=== PATIENT | male | born 1985 | race Caucasian/White ===

== ENCOUNTER 2016-08-26 11:40 | Emergency (ER) | payer OTHER ==
[~2016-08-26] VITALS: Ht 177.8 cm; Wt 65.0 kg
[~2016-08-26 11:40] MED LIST: PANT1TAB48 PO
[2016-08-26 11:45] VITALS: TEMP 36.8; O2SAT 99; Ht 177.8 cm; Wt 65.0 kg
[2016-08-26] MEDS ORDERED: GI COCKTAIL PO STA (12:13)
[2016-08-26] MEDS ORDERED: SUCRALFATE 1 GM TAB PO STA (12:13)
[2016-08-26] MEDS ORDERED: FAMOTIDINE 20 MG TAB PO ONE (12:15)
--- NOTE | 2016-08-26 12:15 | EMERGENCY ROOM VISIT NOTE ---
History Report prepared by Lisandra: Edith Morales Under the Supervision of: Dr. Livan Galvez M.D. First contact with patient: 11:51 Chief Complaint: CARDIAC ASSESSMENT Stated Complaint: Anxiety, nausea Nursing Triage Summary: Pt arrives ALS Pt has had "GI issues" for 2 years and has had endoscopy and colonoscopy Pt report episodes of chest tightness and SOB over the past 2 weeks Pt reports he had an episode last night, EMS was on scene, and pt decided not to come to hospital Today pt had another episode of chest tightness and SOB hx anxiety History of Present Illness The patient is a 30 year old male who presents to the Emergency Room with complaints of resolved chest pain that has been intermittent over the last several weeks. He currently rates his discomfort as a 3/10 in severity. The patient states that he has had labored breathing and chest tightness intermittently over the last several weeks. He states that last evening his symptoms worsened so he called for an ambulance. The patient states that by the time EMS arrived his symptoms subsided. He states that it happened again this morning while he was sitting in a classroom at work. The patient states that he additionally felt dizzy and disoriented. He states that he has had intermittent gastrointestinal issues, noting that he has followed with [facility] for his symptoms, but recently switched to [facility]. The patient states that he has had an endoscopy, colonoscopy, CT scan, and Dexter-scan. He notes that he has had intermittent abdominal pain. The patient denies any family history of heart disease. He denies any tobacco use or history of diabetes. The patient denies any previous stress test. The patient notes that he is active and works out often. Source of History: patient Onset: the last several weeks Position: chest Symptom Intensity: 3/10 Quality: other (tightness) Timing: intermittent, resolved Associated Symptoms: + SOB (labored breathing) Note: Associated Symptoms: dizziness, disoriented Review of Systems See HPI for pertinent positives & negatives. A total of 10 systems reviewed and were otherwise negative. Past Medical & Surgical Medical Problems: (1) No pertinent past medical history Surgical Problems: (1) No pertinent past surgical history Family History No pertinent family history stated. Social History Smoking Status: Former Smoker Alcohol Use: occasionally Marital Status: single Housing Status: lives alone Occupation Status: employed Current/Historical Medications Scheduled Amoxicillin (Amoxil), 500 MG PO BID Chlordiazepoxide (Librium), 5 MG PO DAILY Omeprazole (Prilosec), 20 MG PO DAILY Allergies Coded Allergies: No Known Allergies (Unverified , 08/26/16) Physical Exam Vital Signs Date Time Temp Pulse Resp B/P Pulse Ox O2 Delivery O2 Flow Rate FiO2 08/26/16 13:22 67 20 129/69 08/26/16 12:01 81 08/26/16 11:45 36.8 70 18 127/88 99 Room Air Physical Exam GENERAL: Patient is a healthy-appearing well-nourished HEAD: Normocephalic atraumatic EYES: Ocular movements intact pupils equal and react to light OROPHARYNX mucous membranes are moist no exudates present no erythema or edema present NECK: Supple no nuchal rigidity CHEST: Good equal expansion LUNGS: Clear and equal to auscultation CARDIAC: Normal S1 and S2 ABDOMEN: Soft nontender no guarding BACK: No CVA tenderness EXTREMITIES: No pain upon palpation normal muscle strength in all groups no clubbing cyanosis or edema NEURO: Patient is following commands is answering questions appropriately. Alert and oriented x3 Cranial Nerves 2-12 grossly intact Medical Decision & Procedures ER Provider Diagnostic Interpretation: X-ray results as stated below per interpretation by me and the radiologist: CHEST ONE VIEW PORTABLE CLINICAL HISTORY: Chest pain. Anxiety. COMPARISON STUDY: No previous studies for comparison. FINDINGS: Lung volumes are normal. There is no pneumothorax or pleural effusion. Cardiac size is normal. Mediastinal contours are normal. There is no evidence of pulmonary edema. IMPRESSION: No acute cardiopulmonary findings. Electronically signed by: Joseph Vega M.D. 08/26/2016 1:12 PM Dictated Date/Time: 08/26/2016 1:11 PM Laboratory Results 08/26/16 12:00 08/26/16 12:00 Test 08/26/16 12:00 08/26/16 12:07 Red Blood Count 4.67 M/uL (4.7-6.1) Mean Corpuscular Volume 87.8 fL (80-100) Mean Corpuscular Hemoglobin 31.0 pg (25-34) Mean Corpuscular Hemoglobin Concent 35.4 g/dl (32-36) RDW Standard Deviation 41.0 fL (36.4-46.3) RDW Coefficient of Variation 12.8 % (11.5-14.5) Mean Platelet Volume 9.5 fL (7.4-10.4) Prothrombin Time 11.0 SECONDS (9.0-12.0) Prothromb Time International Ratio 1.0 (0.9-1.1) Activated Partial Thromboplast Time 27.2 SECONDS (21.0-31.0) Partial Thromboplastin Ratio 1.0 Est Creatinine Clear Calc Drug Dose 90.3 ml/min Estimated GFR () 103.9 Estimated GFR (Non- 89.6 BUN/Creatinine Ratio 11.6 (10-20) Calcium Level 8.9 mg/dl (8.5-10.1) Total Bilirubin 0.5 mg/dl (0.2-1) Aspartate Amino Transf (AST/SGOT) 16 U/L (15-37) Alanine Aminotransferase (ALT/SGPT) 21 U/L (12-78) Alkaline Phosphatase 39 U/L (45-117) Total Creatine Kinase 116 U/L (39-308) Creatine Kinase MB 0.6 ng/ml (0.5-3.6) Creatine Kinase MB Ratio 0.5 (0-3.0) Troponin I < 0.015 ng/ml (0-0.045) Total Protein 7.2 gm/dl (6.4-8.2) Albumin 4.0 gm/dl (3.4-5.0) Globulin 3.2 gm/dl (2.5-4.0) Albumin/Globulin Ratio 1.3 (0.9-2) Bedside Hemoglobin 14.3 g/dl (14.0-18.0) Bedside Hematocrit 42 % (42-52) Bedside D-Dimer 49 ng/mlFEU (0-450) Bedside Sodium 139 mEq/L (135-144) Bedside Potassium 4.2 mEq/L (3.3-5.0) Bedside Chloride 104 mEq/L (101-112) Bedside Total CO2 22 mEq/l (24-31) Anion Gap 19.0 mmol/L (16-25) Bedside Blood Urea Nitrogen 14 mg/dl (7-18) Bedside Creatinine 1.1 mg/dl (0.6-1.3) Bedside Glucose (other) 95 mg/dl (70-99) Bedside Ionized Calcium (Hansel) 1.08 mmol/l (1.12-1.32) Labs reviewed by ED physician. Medications Administered Medications (Trade) Dose Ordered Sig/Renetta Route Start Time Stop Time Status Last Admin Dose Admin Famotidine (Pepcid Tab) 20 mg NOW ONCE PO 08/26/16 12:15 08/26/16 12:16 DC 08/26/16 12:15 20 MG Sucralfate (Carafate Tab) 1 gm NOW STAT PO 08/26/16 12:13 08/26/16 12:14 DC 08/26/16 12:13 1 GM Al Hydroxide/Mg Hydroxide (Maalox Susp) 30 ml STK-MED ONCE .ROUTE 08/26/16 12:26 08/26/16 12:27 DC 08/26/16 12:26 30 ML Lidocaine HCl (Viscous Lidocaine 2% Soln) 20 ml STK-MED ONCE .ROUTE 08/26/16 12:26 08/26/16 12:27 DC 08/26/16 12:26 20 ML Lorazepam (Ativan Inj) 1 mg NOW STAT IV 08/26/16 13:14 08/26/16 13:15 DC 08/26/16 13:21 1 MG ECG Indication: chest pain Rate (beats per minute): 68 Rhythm: normal sinus Findings: no acute ischemic change, no ectopy ED Course 1205: Past medical records reviewed. The patient was evaluated in room A6. A complete history and physical examination was performed. 1213: Ordered Carafate Tab 1 gm PO, GI Cocktail 24 ml PO. 1215: Ordered Famotidine 20 mg PO. 1314: I reevaluated the patient and he is resting comfortably. I discussed the exam findings with him and I discussed the treatment plan. He verbalized complete understanding and agreement. He is ready to go home. Ordered Ativan Inj 1 mg IV. Medical Decision Differential diagnosis: Etiologies such as cardiac ischemia, aortic dissection, pulmonary embolism, pneumonia, pneumothorax, musculoskeletal, infections, pericarditis, myocarditis , esophageal rupture, gastrointestinal, as well as others were entertained. This is a 30-year-old male who presents emergency department complaining of chest pain. The patient has a history of being worked up for gastroenterology. The patient was given Pepcid GI cocktail and Carafate. Repeat examination revealed some improvement patient's symptoms. The patient is being worked up for his gastroenterology issues. I do believe from a cardiac standpoint he can be safely discharged home today however stressed the need for follow-up with cardiology. I also recommended that the patient talk to a counselor over his anxiety. Case management did meet with the patient. The patient has normal EKG here CK-MB troponin as well as normal d-dimer. I believe he is well enough to be discharged home for follow-up. Patient was in agreement with the treatment plan. Impression Primary Impression: Precordial chest pain Scribe Attestation The scribe's documentation has been prepared under my direction and personally reviewed by me in its entirety. I confirm that the note above accurately reflects all work, treatment, procedures, and medical decision making performed by me. Departure Information Dispostion Home / Self-Care Referrals Diony Cutler PA-C (PCP) Homar An M.D. Forms IMPORTANT VISIT INFORMATION, School Instructions, Work Instructions Patient Instructions Chest Pain - [facility], [facility], [facility] Additional Instructions Follow up with Dr An's office You have been examined and treated today on an emergency basis only. This is not a substitute for, or an effort to provide, complete comprehensive medical care. It is impossible to recognize and treat all injuries or illnesses in a single emergency department visit. It is therefore important that you follow up closely with DR Cutler. Call as soon as possible for an appointment. Thank you for your time and consideration. I look forward to speaking with you again soon. Please don't hesitate to call us if you have any questions.
[2016-08-26 12:21] LABS: ISTAT CREATININE 1.1 mg/dl (0.6-1.3); ISTAT HEMOGLOBIN 14.3 g/dl (14.0-18.0); ISTAT IONIZED CALCIUM 1.08 mmol/l (1.12-1.32)
[2016-08-26] MEDS ORDERED: AMOX500C3 PO (12:23)
[2016-08-26] MEDS ORDERED: CHLO5CAP19 PO (12:23)
[2016-08-26] MEDS ORDERED: PRLSR20 PO (12:23)
[2016-08-26 12:24] LABS: MEAN CELL VOLUME 87.8 fL (80-100); MEAN CORPUSCULAR HGB CONC 35.4 g/dl (32-36); MEAN PLATELET VOLUME 9.5 fL (7.4-10.4); PLATELET COUNT 251 K/uL (130-400); RED BLOOD COUNT 4.67 M/uL (4.7-6.1)
[2016-08-26] MEDS ORDERED: LIDOCAINE HCL 2% VISC SOLN 20 ML UDC ONE (12:26)
[2016-08-26] MEDS ORDERED: ALUMINUM/MAGNESIUM SUSP 30 ML UDC ONE (12:26)
[2016-08-26 12:45] LABS: ALT/SGPT 21 U/L (12-78); AST/SGOT 16 U/L (15-37); BLOOD UREA NITROGEN 13 mg/dl (7-18); BUN/CREATININE RATIO 11.6 (10-20); CALCIUM 8.9 mg/dl (8.5-10.1); CARBON DIOXIDE 24 mmol/L (21-32); CHLORIDE 107 mmol/L (98-107); GLUCOSE 88 mg/dl (70-99); POTASSIUM 3.8 mmol/L (3.5-5.1); SODIUM 141 mmol/L (136-145)
[2016-08-26 12:50] LABS: ALB/GLOB RATIO 1.3 (0.9-2); ALKALINE PHOSPHATASE 39 U/L (45-117); CKMB/CK RATIO 0.5 (0-3.0)
--- NOTE | 2016-08-26 13:13 | DIAGNOSTIC IMAGING REPORT ---
CHEST ONE VIEW PORTABLE CLINICAL HISTORY: Chest pain. Anxiety. COMPARISON STUDY: No previous studies for comparison. FINDINGS: Lung volumes are normal. There is no pneumothorax or pleural effusion. Cardiac size is normal. Mediastinal contours are normal. There is no evidence of pulmonary edema. IMPRESSION: No acute cardiopulmonary findings. Electronically signed by: Joseph Vega M.D. 08/26/2016 1:12 PM Dictated Date/Time: 08/26/2016 1:11 PM
[2016-08-26] MEDS ORDERED: LORAZEPAM 2 MG/ML 1 ML VIAL IV STA (13:14)
[2016-08-26 13:22] VITALS: BP 129/69; PULSE 67
== END 2016-08-26 13:33 | disposition home or self-care (01) ==
LOC: EDBD 11:40 → C.EDA 11:47
DX: R07.2 Precordial pain (principal); Z87.891 Personal history of nicotine dependence